=== PATIENT | female | born 1975 | race Caucasian/White ===

== ENCOUNTER → 2020-03-30 | Outpatient (CLI) | payer OTHER | LOC: ZCOL.LAB 15:51 | DX: R05 Cough (principal); Z20.828 Contact with and (suspected) exposure to other viral communicable diseases ==

== ENCOUNTER → 2020-04-27 | Outpatient (CLI) | payer OTHER | LOC: MC.RAD 09:30 | DX: Z12.31 Encounter for screening mammogram for malignant neoplasm of breast (principal) ==

== ENCOUNTER 2022-10-07 11:08 | Emergency (ER) | payer OTHER ==
[~2022-10-07] VITALS: Ht 160 cm; Wt 97.7 kg
[2022-10-07 11:14] VITALS: TEMP 98.2
[2022-10-07 12:53] LABS: BASO % 0.3 % (0.0-2.0); EOS # 0.1 K/mm3 (0.0-0.7); GRAN # 3.8 K/mm3 (1.4-6.5); GRAN % 60.4 % (42.2-75.2); HEMATOCRIT 40.6 % (37.0-47.0); HEMOGLOBIN 13.7 g/dl (12.5-16.0); LYMPH % 30.7 % (20.0-51.0); MEAN CELL VOLUME 93 fl (80.0-100.0); MEAN CORPUSCULAR HEMOGLOBIN 31 pg (27-31); MEAN CORPUSCULAR HGB CONC 34 g/dl (33.0-37.0); MEAN PLATELET VOLUME 10.5 fl (7.4-10.4); MONO # 0.4 K/mm3 (0.1-0.6); MONO % 6.4 % (1.7-9.3); PLATELET COUNT 223 K/mm3 (130-400); RED BLOOD COUNT 4.38 M/mm3 (4.10-5.30); REDCELL DISTRIBUTION WIDTH-CV 12.3 % (11.5-14.5)
[2022-10-07 13:11] LABS: ALANINE AMINOTRANSFERASE 64 U/L (0-55); ALBUMIN 4.2 gm/dL (3.5-5.0); ALKALINE PHOSPHATASE 78 U/L (40-150); ANION GAP 11 mmol/L (7-16); AST,SGOT 53 U/L (5-34); BILIRUBIN,TOTAL 0.4 mg/dL (0.2-1.2); BLOOD UREA NITROGEN 11 mg/dL (7-19); CALCIUM 9.8 mg/dL (8.4-10.2); CARBON DIOXIDE 25 mmol/L (22-29); CHLORIDE 109 mmol/L (98-107); CREATININE, serum 0.83 mg/dL (0.57-1.11); GLUCOSE 83 mg/dL (70-99); POTASSIUM 3.6 mmol/L (3.5-4.5); SODIUM 145 mmol/L (136-145)
[2022-10-07 13:18] LABS: TROPONIN-I < 0.010 ng/mL (0.00-0.033)
[2022-10-07 13:40] VITALS: BP 124/87; PULSE 76
== END 2022-10-07 14:10 | disposition home or self-care (01) ==
LOC: COL.ER 11:08
PROVIDERS: Physician Assistant
DX: R07.89 Other chest pain (principal)